=== PATIENT | female | born 1990 | race Caucasian/White ===

== ENCOUNTER 2017-01-07 11:56 | Emergency (ER) | payer SELFPAY ==
[~2017-01-07] VITALS: Ht 152.4 cm; Wt 63.5 kg
--- NOTE | 2017-01-07 12:13 | PHYS DOC ---
Past Medical History Past Medical History: No Pertinent History Past Surgical History: No Surgical History Alcohol Use: None Drug Use: None Adult General Chief Complaint Chief Complaint: ABDOMINAL PAIN HPI HPI Patient is a 26 year old female who presents with right lower quadrant pain. She states it started yesterday. Is made worse when she moves. She denies any nausea vomiting. She denies any vaginal bleeding or discharge or dysuria. She is sexually active but denies any history of social transmitted infections. She states overnight her pain got worse before she came to the ER. Review of Systems Review of Systems Constitutional: Denies fever or chills [] Eyes: Denies change in visual acuity, redness, or eye pain [] HENT: Denies nasal congestion or sore throat [] Respiratory: Denies cough or shortness of breath [] Cardiovascular: No additional information not addressed in HPI [] GI: Positive for abdominal pain, Denies nausea, vomiting, bloody stools or diarrhea [] : Denies dysuria or hematuria [] Musculoskeletal: Denies back pain or joint pain [] Integument: Denies rash or skin lesions [] Neurologic: Denies headache, focal weakness or sensory changes [] Endocrine: Denies polyuria or polydipsia [] Current Medications Current Medications Current Medications Medications (Trade) Dose Ordered Sig/Paige Start Time Stop Time Status Last Admin Dose Admin Info (Do NOT chart on this entry -- for MONITORING) 1 each PRN DAILY PRN 01/07/17 12:45 01/09/17 12:44 Iohexol (Omnipaque 240 Mg/ml) 50 ml 1X ONCE 01/07/17 12:45 01/07/17 12:46 DC 01/07/17 12:45 50 ML Iohexol (Omnipaque 300 Mg/ml) 75 ml 1X ONCE 01/07/17 12:45 01/07/17 12:46 DC 01/07/17 13:41 75 ML Morphine Sulfate 2 mg PRN Q15MIN PRN 01/07/17 12:45 01/08/17 12:44 01/07/17 12:55 2 MG Ondansetron HCl (Zofran) 4 mg 1X ONCE 01/07/17 12:45 01/07/17 12:46 DC 01/07/17 12:54 4 MG Sodium Chloride 1,000 ml @ 1,000 mls/hr Q1H 01/07/17 12:32 01/07/17 13:31 DC 01/07/17 12:54 1,000 MLS/HR Allergies Allergies Allergies Coded Allergies Type Severity Reaction Last Updated Verified No Known Drug Allergies 05/09/15 No Physical Exam Physical Exam Constitutional: Well developed, well nourished, no acute distress, non-toxic appearance. [] HENT: Normocephalic, atraumatic, bilateral external ears normal, oropharynx moist, no oral exudates, nose normal. [] Eyes: PERRLA, EOMI, conjunctiva normal, no discharge. [] Neck: Normal range of motion, no tenderness, supple, no stridor. [] Cardiovascular:Heart rate regular rhythm, no murmur [] Lungs & Thorax: Bilateral breath sounds clear to auscultation [] Abdomen/pelvic exam: Bowel sounds normal, soft, palpation in the right lower quadrant without rebound or guarding so I sign negative, no masses, no pulsatile masses. Normal external genitalia, no cervical motion tenderness, no discharge noted Skin: Warm, dry, no erythema, no rash. [] Back: No tenderness, no CVA tenderness. [] Extremities: No tenderness, no cyanosis, no clubbing, ROM intact, no edema. [] Neurologic: Alert and oriented X 3, normal motor function, normal sensory function, no focal deficits noted. [] Psychologic: Affect normal, judgement normal, mood normal. [] Current Patient Data Vital Signs Vital Signs Date Time Temp Pulse Resp B/P (MAP) Pulse Ox O2 Delivery O2 Flow Rate FiO2 01/07/17 12:55 20 Room Air 01/07/17 12:10 99.1 74 128/75 (92) 99 99.1 Lab Values Laboratory Tests Test 01/07/17 12:10 01/07/17 12:12 01/07/17 12:20 Urine Collection Type Unknown Urine Color Yellow Urine Clarity Cloudy Urine pH 8.0 Urine Specific [place] 1.015 Urine Protein Negative mg/dL (NEG-TRACE) Urine Glucose (UA) Negative mg/dL (NEG) Urine Ketones (Stick) Negative mg/dL (NEG) Urine Blood Negative (NEG) Urine Nitrite Negative (NEG) Urine Bilirubin Negative (NEG) Urine Urobilinogen Dipstick 1.0 mg/dL (0.2 mg/dL) Urine Leukocyte Esterase Trace (NEG) Urine RBC Rare /HPF (0-2) Urine WBC Rare /HPF (0-4) Urine Squamous Epithelial Cells Few /LPF Urine Bacteria Few /HPF (0-FEW) POC Urine HCG, Qualitative Hcg negative (Negative) White Blood Count 7.6 x10^3/uL (4.0-11.0) Red Blood Count 4.77 x10^6/uL (3.50-5.40) Hemoglobin 15.1 g/dL (12.0-15.5) Hematocrit 43.9 % (36.0-47.0) Mean Corpuscular Volume 92 fL (79-100) Mean Corpuscular Hemoglobin 32 pg (25-35) Mean Corpuscular Hemoglobin Concent 34 g/dL (31-37) Red Cell Distribution Width 12.6 % (11.5-14.5) Platelet Count 258 x10^3/uL (140-400) Neutrophils (%) (Auto) 56 % (31-73) Lymphocytes (%) (Auto) 32 % (24-48) Monocytes (%) (Auto) 7 % (0-9) Eosinophils (%) (Auto) 4 % (0-3) H Basophils (%) (Auto) 1 % (0-3) Neutrophils # (Auto) 4.3 x10^3uL (1.8-7.7) Lymphocytes # (Auto) 2.5 x10^3/uL (1.0-4.8) Monocytes # (Auto) 0.5 x10^3/uL (0.0-1.1) Eosinophils # (Auto) 0.3 x10^3/uL (0.0-0.7) Basophils # (Auto) 0.1 x10^3/uL (0.0-0.2) Prothrombin Time 13.4 SEC (11.7-14.0) Prothrombin Time INR 1.1 (0.8-1.1) PTT 29 SEC (24-38) Sodium Level 140 mmol/L (136-145) Potassium Level 3.7 mmol/L (3.5-5.1) Chloride Level 106 mmol/L (98-107) Carbon Dioxide Level 27 mmol/L (21-32) Anion Gap 7 (6-14) Blood Urea Nitrogen 8 mg/dL (7-20) Creatinine 0.8 mg/dL (0.6-1.0) Estimated GFR (Cockcroft-Gault) 85.4 Glucose Level 91 mg/dL (70-99) Calcium Level 9.8 mg/dL (8.5-10.1) Total Bilirubin 1.0 mg/dL (0.2-1.0) Direct Bilirubin 0.1 mg/dL (0.0-0.2) Aspartate Amino Transferase (AST) 17 U/L (15-37) Alanine Aminotransferase (ALT) 20 U/L (14-59) Alkaline Phosphatase 143 U/L (46-116) H Total Protein 7.6 g/dL (6.4-8.2) Albumin 4.1 g/dL (3.4-5.0) Lipase 123 U/L (73-393) Laboratory Tests 01/07/17 12:20 Laboratory Tests 01/07/17 12:20 Microbiology 01/07/17 Wet Prep - Final, Complete EKG EKG [] Radiology/Procedures Radiology/Procedures [address] [id number] IMAGING REPORT Signed PATIENT: LUIS ARMANDO HAWKINS ACCOUNT: [id number] : 1990 LOCATION: ER AGE: 26 SEX: F EXAM STATUS: REG ER ORD. PHYSICIAN: JOYCE DUNCAN MD REASON: rlq pain PROCEDURE: PELVIS COMPLETE Examination: Ultrasound pelvis History: History of right lower quadrant pain Comparison: None available Findings: The uterus measures 6.2 x 4.1 x 4.1 cm. Linear echogenicity identified within the uterus likely intrauterine contraceptive device. The endometrium measures 9.5 mm in thickness. The right ovary measures 4.3 x 1.9 x 2.4 cm. The left ovary measures 3.2 x 2.1 x 2.6 cm. Blood flow identified in the right and left ovaries. No significant free fluid identified in the pelvis. Impression: Unremarkable visualized exam. DICTATED and SIGNED BY: ALTON VACA MD DATE: 01/07/17 6755 CC: JOYCE DUNCAN MD; TIFF COFFMAN [facility] [address] [place] [address] IMAGING REPORT Signed PATIENT: LUIS ARMANDO HAWKINS ACCOUNT: [id number] : 1990 LOCATION: ER AGE: 26 SEX: F EXAM STATUS: REG ER ORD. PHYSICIAN: JOYCE DUNCAN MD REASON: abdominal pain PROCEDURE: CT ABD PELV W/ORAL&IV CONTRAST Examination: CT of the abdomen pelvis with oral and IV contrast History: History of right lower quadrant abdominal pain Comparison: None available Technique: Axial CT images of the abdomen is performed with oral and IV contrast. Coronal and sagittal reformats are performed. PQRS Compliance Statement: One or more of the following individualized dose reduction techniques were utilized for this examination: 1. Automated exposure control 2. Adjustment of the mA and/or kV according to patient size 3. Use of iterative reconstruction technique Findings: The visualized bibasal lungs grossly appears unremarkable. No evidence of free air identified in the abdomen. The visualized liver, spleen, adrenals grossly appears unremarkable. The gallbladder is mildly distended. The stomach is mildly distended. The visualized pancreas grossly appears unremarkable. There is a segment of loop of bowel in the midabdomen from series 2 image 53 - 50 demonstrates mild questionable thickening of the bowel loop. Feces and gas noted throughout the colon. The urinary bladder is mildly distended. The visualized uterus, adnexa grossly appears unremarkable. Intrauterine contraceptive device identified in the uterus. The appendix is normal. Few prominent mesenteric lymph nodes identified in the right lower quadrant of the largest measuring 1.9 cm No evidence of lytic bony destructive lesion. Impression: 1. Normal-appearing appendix. 2. Small segment of loop of small bowel in the midabdomen demonstrate mild thickening could be secondary to nondistention or mild enteritis. 3. Few prominent right lower quadrant mesenteric lymph nodes, correlate for mesenteric lymphadenitis. DICTATED and SIGNED BY: ALTON VACA MD DATE: 01/07/17 1412 CC: JOYCE DUNCAN MD; TIFF COFFMAN RUN DATE: 01/07/17 PAGE 1 RUN TIME: 1439 [facility] [address] [place] [address] aWng Apple M.D., Car Pick Up Driver PATIENT: LUIS ARMANDO HAWKINS ACCT: [id number] LOC: [place] U : [id number] AGE/SX: 26/ ROOM: REG : 01/07/[address]: JOYCE DUNCAN MD : 1990 BED: DIS : STATUS: REG ER TLOC: SPEC #: [id number] ANALI: 01/07/17-1351 STATUS: COMP REQ #: [id number] RECD: 01/07/171402 [facility] DR: JOYCE DUNCAN MD SOURCE: VAGINAL ENTR: 01/07/17-1259 [facility] DR: TIFF COFFMAN SPDESC: ORDERED: WET PREP COMMENTS: Has specimen been collected/obtained? Y Procedure Result WET PREP Final YEAST NONE SEEN TRICHOMONAS NONE SEEN CLUE CELLS NONE SEEN WBCS MODERATE END OF REPORT Impressions: Right lower quadrant pain Course & Med Decision Making Course & Med Decision Making Pertinent Labs and Imaging studies reviewed. (See chart for details) Labs, CT scan abdomen pelvis in addition to ultrasound all nonacute. Her pelvic exam also nonacute. She is in stable condition being discharged home she can use Tylenol, Motrin. Return precautions given. She is agreeable to plan being discharged in stable condition with return precautions. Dragon Disclaimer Dragon Disclaimer This electronic medical record was generated, in whole or in part, using a voice recognition dictation system. Departure Departure Impression: Primary Impression: Abdominal pain Disposition: HOME, SELF-CARE Condition: STABLE Referrals: TIFF COFFMAN (PCP) Patient Instructions: Abdominal Pain Additional Instructions: The CAT scan and ultrasound does not show any acute abnormalities or other reasons why he had pain in the right lower quadrant. They do see a small area of your bowel that he could have a small minimal of inflammation and this likely due to a virus but otherwise there is no other processes going on. Your being discharged home. You can use Motrin and/or Tylenol for discomfort. Your pain gets severe, you have fevers, nausea vomiting or other concerns please return back to emergency department. You will need to follow-up with primary care physician within the next 3-5 days. Problem Qualifiers Primary Impression: Abdominal pain Abdominal location: right lower quadrant Qualified Codes: R10.31 - Right lower quadrant pain JOYCE DUNCAN MD Jan 07, 2017 12:13
[2017-01-07] MEDS ORDERED: IV NORMAL SALINE 1000ML BAG 1,000 ML IV SCH (12:32)
[2017-01-07] MEDS ORDERED: ONDANSETRON PF 4 MG/2 ML VIAL. IV ONE (12:45)
[2017-01-07] MEDS ORDERED: CONTRAST GIVEN MC PRN (12:45)
[2017-01-07] MEDS ORDERED: IOHEXOL 240 MG/ML 50ML VIAL. PO ONE (12:45)
[2017-01-07] MEDS ORDERED: IOHEXOL 300 MG/ML 75 ML VIAL IV ONE (12:45)
[2017-01-07] MEDS ORDERED: MORPHINE SULFATE 2 MG/ML DISP.SYRIN. IV/SQ PRN (12:45)
[2017-01-07 13:30] LABS: BILIRUBIN,URINE NEGATIVE (NEG); GLUCOSE,URINE NEGATIVE (NEG); NITRITE,URINE NEGATIVE (NEG); PROTEIN,URINE NEGATIVE (NEG-TRACE)
[2017-01-07 13:31] LABS: BASO # 0.1 x10^3/uL (0.0-0.2); BASO % 1 % (0-3); EOS % 4 % (0-3); HEMATOCRIT 43.9 % (36.0-47.0); HEMOGLOBIN 15.1 g/dL (12.0-15.5); LYMPH # 2.5 x10^3/uL (1.0-4.8); LYMPH % 32 % (24-48); MEAN CORPUSCULAR HEMOGLOBIN 32 pg (25-35); MEAN CORPUSCULAR HGB CONC 34 g/dL (31-37); MEAN CORPUSCULAR VOLUME 92 fL (79-100); MONO % 7 % (0-9); NEUT % 56 % (31-73); PLATELET COUNT 258 x10^3/uL (140-400); RED BLOOD COUNT 4.77 x10^6/uL (3.50-5.40); RED CELL DISTRIBUTION WIDTH 12.6 % (11.5-14.5); WHITE BLOOD COUNT 7.6 x10^3/uL (4.0-11.0)
[2017-01-07 13:38] LABS: CALCIUM 9.8 mg/dL (8.5-10.1); CREATININE 0.8 mg/dL (0.6-1.0); GFR 85.4; POTASSIUM 3.7 mmol/L (3.5-5.1)
--- NOTE | 2017-01-07 13:42 | RAD ---
Examination: Ultrasound pelvis History: History of right lower quadrant pain Comparison: None available Findings: The uterus measures 6.2 x 4.1 x 4.1 cm. Linear echogenicity identified within the uterus likely intrauterine contraceptive device. The endometrium measures 9.5 mm in thickness. The right ovary measures 4.3 x 1.9 x 2.4 cm. The left ovary measures 3.2 x 2.1 x 2.6 cm. Blood flow identified in the right and left ovaries. No significant free fluid identified in the pelvis. Impression: Unremarkable visualized exam.
[2017-01-07 13:44] LABS: ALBUMIN 4.1 g/dL (3.4-5.0); DIRECT BILIRUBIN 0.1 mg/dL (0.0-0.2); TOTAL PROTEIN 7.6 g/dL (6.4-8.2)
[2017-01-07 13:45] LABS: BACTERIA,URINE FEW /HPF (0-FEW); RBC,URINE RARE /HPF (0-2); SQUAMOUS EPITHELIAL CELL,UR FEW /LPF; WBC,URINE RARE /HPF (0-4)
[2017-01-07 13:57] LABS: INR 1.1 (0.8-1.1); PROTHROMBIN TIME PATIENT 13.4 SEC (11.7-14.0)
--- NOTE | 2017-01-07 14:20 | RAD ---
Examination: CT of the abdomen pelvis with oral and IV contrast History: History of right lower quadrant abdominal pain Comparison: None available Technique: Axial CT images of the abdomen is performed with oral and IV contrast. Coronal and sagittal reformats are performed. PQRS Compliance Statement: One or more of the following individualized dose reduction techniques were utilized for this examination: 1. Automated exposure control 2. Adjustment of the mA and/or kV according to patient size 3. Use of iterative reconstruction technique Findings: The visualized bibasal lungs grossly appears unremarkable. No evidence of free air identified in the abdomen. The visualized liver, spleen, adrenals grossly appears unremarkable. The gallbladder is mildly distended. The stomach is mildly distended. The visualized pancreas grossly appears unremarkable. There is a segment of loop of bowel in the midabdomen from series 2 image 53 - 50 demonstrates mild questionable thickening of the bowel loop. Feces and gas noted throughout the colon. The urinary bladder is mildly distended. The visualized uterus, adnexa grossly appears unremarkable. Intrauterine contraceptive device identified in the uterus. The appendix is normal. Few prominent mesenteric lymph nodes identified in the right lower quadrant of the largest measuring 1.9 cm No evidence of lytic bony destructive lesion. Impression: 1. Normal-appearing appendix. 2. Small segment of loop of small bowel in the midabdomen demonstrate mild thickening could be secondary to nondistention or mild enteritis. 3. Few prominent right lower quadrant mesenteric lymph nodes, correlate for mesenteric lymphadenitis.
[2017-01-07 14:40] VITALS: BP 110/72
== END 2017-01-07 14:47 | disposition home or self-care (01) ==
LOC: ER 11:56
DX: R10.31 Right lower quadrant pain (principal)
CPT/HCPCS: 36415; 74177; 76856; 80048; 80076; 81001; 81025; 83690; 85025; 85610; 85730; 87086; 87491; 87591; 96361; 96374; 96375; 99285; J2270; J2405; J7030; Q0111; Q9966; Q9967